=== PATIENT | female | born 2000 | race Caucasian/White ===

== ENCOUNTER 2024-03-29 20:49 | Emergency (ER) | payer SELFPAY ==
[~2024-03-29] VITALS: Ht 165.1 cm; Wt 64.9 kg
[2024-03-29 21:29] VITALS: BP 122/69; TEMP 100.1; O2SAT 99
== END 2024-03-29 21:48 | disposition home or self-care (01) ==
LOC: ER 20:54
DX: B34.9 Viral infection, unspecified (principal); R05.9 Cough, unspecified; R07.0 Pain in throat; R51.9 Headache, unspecified